=== PATIENT | male | born 1945 | race Caucasian/White ===

== ENCOUNTER 2018-04-24 09:59 | Emergency (ER) | payer MEDICARE, SELFPAY | END 2018-04-24 11:10 | disposition home or self-care (01) | LOC: M ED 09:59 | DX: H43.399 Other vitreous opacities, unspecified eye (principal); I10 Essential (primary) hypertension; E78.70 Disorder of bile acid and cholesterol metabolism, unspecified; K21.9 Gastro-esophageal reflux disease without esophagitis; Z79.899 Other long term (current) drug therapy | CPT/HCPCS: 99282 ==